=== PATIENT | female | born 1975 | race Caucasian/White ===

== ENCOUNTER 2020-10-20 00:52 | Emergency (ER) | payer OTHER ==
[~2020-10-20 00:52] MED LIST: FLEXERIL 10 MG10 MG PO; IBU800 MG PO; IBUPROFEN800 MG PO; KEFLEX CAP 500500 MG PO; MYCOSTATIN POWD15 GM TOP; NORCO 5-325 TA1 EACH PO
[2020-10-20 02:55] LABS: HEMOGLOBIN 12.2 gm/dl (12.3-15.3); RED BLOOD COUNT 4.75 M/UL (4.00-5.10); WHITE BLOOD COUNT 9.6 K/UL (4.5-11.0)
[2020-10-20 03:11] LABS: BUN/CREATININE RATIO 10 (0-10)
[2020-10-20] MEDS ORDERED: PEPCID20 MG PO (04:58)
== END 2020-10-20 05:11 | disposition home or self-care (01) ==
LOC: ER1 00:52
PROVIDERS: Student in an Organized Health Care Education/Training Program
DX: R10.9 Unspecified abdominal pain (principal)
CPT/HCPCS: 71045; 80053; 81001; 82550; 82553; 83605; 83690; 83735; 83874; 84100; 84484; 84702; 85025; 93005; 96374; 99284; J1885; Q9967

== ENCOUNTER → 2021-03-12 | Outpatient (CLI) | payer OTHER ==
[~2021-03-12] MED LIST changes: +PEPCID20 MG PO
[2021-03-12 13:56] LABS: HEMOGLOBIN 14.5 gm/dl (12.3-15.3); RED BLOOD COUNT 5.52 M/UL (4.00-5.10); WHITE BLOOD COUNT 10.5 K/UL (4.5-11.0)
[2021-03-12 14:35] LABS: BUN/CREATININE RATIO 11 (0-10)
== END ==
LOC: LAB 11:44
PROVIDERS: Physician Assistant Medical
DX: R73.03 Prediabetes (principal); R53.83 Other fatigue
CPT/HCPCS: 36415; 80053; 83036; 84443; 85027

== ENCOUNTER → 2021-05-14 | Outpatient (CLI) | payer OTHER | LOC: EXRD 13:00 | DX: H53.121 Transient visual loss, right eye (principal); I65.21 Occlusion and stenosis of right carotid artery | CPT/HCPCS: 93880 ==

== ENCOUNTER 2021-09-23 21:09 | Emergency (ER) | payer OTHER ==
[2021-09-24] MEDS ORDERED: IBUPROFEN600 MG PO (00:35)
[2021-09-24] MEDS ORDERED: CYCLOBENZAPRINE10 MG PO (00:35)
== END 2021-09-24 00:42 | disposition home or self-care (01) ==
LOC: ER1 21:09
DX: M77.9 Enthesopathy, unspecified (principal); M43.6 Torticollis
CPT/HCPCS: 72125; 73080; 96372; 99284; J1885

== ENCOUNTER 2022-01-05 23:27 | Emergency (ER) | payer OTHER ==
[~2022-01-05 23:27] MED LIST changes: +CYCLOBENZAPRINE10 MG PO; +IBUPROFEN600 MG PO
[2022-01-06 00:34] LABS: HEMOGLOBIN 12.4 gm/dl (12.3-15.3); RED BLOOD COUNT 4.67 M/UL (4.00-5.10); WHITE BLOOD COUNT 11.3 K/UL (4.5-11.0)
== END 2022-01-06 06:10 | disposition home or self-care (01) ==
LOC: ER1 23:27
PROVIDERS: Nurse Practitioner
DX: R00.2 Palpitations (principal); Z90.49 Acquired absence of other specified parts of digestive tract
CPT/HCPCS: 71045; 81001; 82550; 82553; 83735; 84100; 84439; 84443; 84484; 84703; 85025; 85379; 87086; 93005; 93270; 99285

== ENCOUNTER 2022-02-05 20:30 | Emergency (ER) | payer OTHER ==
[2022-02-05 22:08] LABS: HEMOGLOBIN 12.5 gm/dl (12.3-15.3); RED BLOOD COUNT 4.68 M/UL (4.00-5.10)
[2022-02-05 22:35] LABS: BUN/CREATININE RATIO 13 (0-10)
[2022-02-06] MEDS ORDERED: PREDNISONE 20 M20 MG PO (00:07)
[2022-02-06] MEDS ORDERED: PROVENTIL HFA6.7 GM INH (00:07)
[2022-02-07] MEDS ORDERED: BENADRYL25 MG PO (08:54)
== END 2022-02-06 01:00 | disposition home or self-care (01) ==
LOC: ER1 20:30
PROVIDERS: Nurse Practitioner
DX: J40 Bronchitis, not specified as acute or chronic (principal); Z20.822 Contact with and (suspected) exposure to COVID-19
CPT/HCPCS: 71045; 80053; 82550; 82553; 84484; 85025; 93005; 96374; 99285; J1100; U0002

== ENCOUNTER 2022-02-07 06:40 | Emergency (ER) | payer OTHER ==
[~2022-02-07 06:40] MED LIST changes: +PREDNISONE 20 M20 MG PO; +PROVENTIL HFA6.7 GM INH
[2022-02-07] MEDS ORDERED: BENADRYL25 MG PO (08:54)
== END 2022-02-07 09:15 | disposition home or self-care (01) ==
LOC: ER1 06:40
DX: R21 Rash and other nonspecific skin eruption (principal); Z90.49 Acquired absence of other specified parts of digestive tract
CPT/HCPCS: 96374; 99282; J2930